=== PATIENT | male | born 2000 | race Caucasian/White ===

== ENCOUNTER 2023-04-20 02:00 | Emergency (ER) | payer SELFPAY ==
[2023-04-20] MEDS ORDERED: Ketorolac Tromethamine 30 MG/ML VIAL ONE (03:00)
[2023-04-20] MEDS ORDERED: Ondansetron PF 4 MG/2 ML Vial ONE (03:00)
[2023-04-20 03:03] LABS: Bilirubin Neg (Negative); Blood, Urine Negative (Negative); Glucose, Urine (Dipstick) Normal (Negative); Ketone, Urine 50 mg/dL (Negative); Leukocyte 25 (Negative); Nitrite Negative (Negative); Protein, Urine (Dipstick) 15 mg/dl (Neg-Trace); Urobilinogen Normal mg/dL (Less than 2)
[2023-04-20 03:07] LABS: Clarity Clear (Clear)
[2023-04-20 03:27] LABS: #Basophils 0.1 10x3/uL (0.0-0.2); #Eosinphils 0.1 10x3/uL (0.0-0.5); #Monocytes 0.7 10x3/uL (0.0-1.1); #Neutrophils 5.6 10x3/uL (1.5-8.4); %Basophils 0.9 % (0.0-2.0); %Eosinophils 1.3 % (0.0-6.0); %Monocytes 10.5 % (0.0-10.0); Hematocrit 39.6 % (38.8-50.0); Hemoglobin 13.7 g/dL (13.5-17.5); Mean Corpuscular HGB CONC 34.6 g/dL (32.0-36.0); Mean Platelet Volume 10.7 fl (7.4-10.4); Platelet Count 267 10x3/uL (150-450); RBC Distribution Width 12.3 % (11.5-14.5); Red Blood Cell (RBC) Count 4.89 10x6/uL (4.32-5.72)
[2023-04-20 03:28] LABS: Bacteria/HPF None Seen HPF (None Seen); CAUTI Indications for Culture Pelvic or flank pain; RBC/HPF None Seen HPF (0-3); Squamous Epithelial None Seen HPF (0-3); WBC/HPF 0-3 HPF (0-3)
[2023-04-20 03:29] LABS: Urine Culture Reflex No No
[2023-04-20 03:35] LABS: ALT (SGPT) 12 U/L (8-55); AST (SGOT) 18 U/L (5-34); Albumin 4.6 g/dL (3.5-5.0); Alkaline Phosphatase 97 U/L (40-110); Anion Gap 15 mmol/L (10-20); BUN (Urea Nitrogen) 14 mg/dL (8.9-20.6); Bilirubin, Total 0.7 mg/dL (0.2-1.2); Calc. Creatinine Clearance 0 mL/min (70-130); Calcium 9.1 mg/dL (7.8-10.44); Carbon Dioxide 20 mmol/L (22-29); Chloride 106 mmol/L (98-107); Estimated GFR 103; Globulin 2.4 g/dL (2.4-3.5); Glucose 96 mg/dL (70-105); Potassium 3.6 mmol/L (3.5-5.1); Sodium 137 mmol/L (136-145)
[2023-04-20] MEDS ORDERED: Iopamidol 300 61% 100 ML VIAL FS ONE (12:25)
== END 2023-04-20 05:48 | disposition home or self-care (01) ==
LOC: CSHERS 02:00
DX: M54.50 Low back pain, unspecified (principal)
CPT/HCPCS: 74177; 80053; 81001; 85025; 96374; 96375; J1885; J2405; Q9967

== ENCOUNTER 2024-05-06 09:15 | Emergency (ER) | payer SELFPAY ==
[2024-05-06 10:01] LABS: #Basophils 0.07 10x3/uL (0.0-0.2); #Eosinphils 0.28 10x3/uL (0.0-0.5); #Monocytes 0.56 10x3/uL (0.0-1.1); #Neutrophils 5.45 10x3/uL (1.5-8.4); %Basophils 0.8 % (0.0-2.0); %Eosinophils 3.2 % (0.0-6.0); %Lymphocytes 26.9 % (18.0-47.0); %Monocytes 6.4 % (0.0-10.0); %Neutrophils 62.6 % (40.0-75.0); Hematocrit 42.9 % (38.8-50.0); Hemoglobin 14.5 g/dL (13.5-17.5); Mean Corpuscular HGB CONC 33.8 g/dL (32.0-36.0); Mean Corpuscular Hemoglobin 27.8 pg (27.0-33.0); Mean Corpuscular Volume 82.2 fL (81.2-95.1); Mean Platelet Volume 10.6 fL (7.4-10.4); Platelet Count 296 10x3/uL (150-450); RBC Distribution Width 12.4 % (11.5-14.5); Red Blood Cell (RBC) Count 5.22 10x6/uL (4.32-5.72); White Blood Cell (WBC) Count 8.7 10x3/uL (3.5-10.5)
[2024-05-06 10:27] LABS: ALT (SGPT) 16 U/L (8-55); AST (SGOT) 17 U/L (5-34); Albumin 4.1 g/dL (3.5-5.0); Alkaline Phosphatase 93 U/L (40-110); Anion Gap 13 mmol/L (10-20); BUN (Urea Nitrogen) 13 mg/dL (8.9-20.6); Bilirubin, Total 0.6 mg/dL (0.2-1.2); Calc. Creatinine Clearance 0 mL/min (70-130); Calcium 9.7 mg/dL (7.8-10.44); Carbon Dioxide 25 mmol/L (22-29); Chloride 105 mmol/L (98-107); Estimated GFR 123; Globulin 2.8 g/dL (2.4-3.5); Glucose 91 mg/dL (70-105); Lipase 18 U/L (8-78); Potassium 4.2 mmol/L (3.5-5.1); Protein, Total 6.9 g/dL (6.0-8.3); Sodium 139 mmol/L (136-145)
[2024-05-06 11:59] LABS: Bilirubin Neg (Negative); Blood, Urine Negative (Negative); Glucose, Urine (Dipstick) Normal (Negative); Ketone, Urine Negative (Negative); Leukocyte Negative (Negative); Nitrite Negative (Negative); Protein, Urine (Dipstick) Negative (Neg-Trace); Urobilinogen Normal mg/dL (Less than 2)
[2024-05-06 12:06] LABS: Clarity Cloudy (Clear)
[2024-05-06 12:50] LABS: Bacteria/HPF Rare-Few HPF (None Seen); CAUTI Indications for Culture Pelvic or flank pain; RBC/HPF 0-3 HPF (0-3); Squamous Epithelial None Seen HPF (0-3); WBC/HPF 0-3 HPF (0-3)
[2024-05-06 12:52] LABS: Urine Culture Reflex No No
== END 2024-05-06 12:11 | disposition home or self-care (01) ==
LOC: CSHERS 09:15
DX: K52.9 Noninfective gastroenteritis and colitis, unspecified (principal)
CPT/HCPCS: 74177; 80053; 81001; 83690; 85025